=== PATIENT | male | born 1970 | race American Indian/Alaskan Native ===

== ENCOUNTER 2017-06-09 08:38 | Emergency (ER) | payer MEDICARE, BC ==
[2017-06-09 08:41] VITALS: BMI 34.5
[2017-06-09 08:43] VITALS: BP 192/104; PULSE 109; RESP 20; TEMP 97.9; O2SAT 98
--- NOTE | 2017-06-09 10:50 | ED PDOC ---
HPI: Abdomen Time Seen by Provider: 06/09/17 09:20 Chief Complaint (Nursing): Abdominal Pain History Per: Patient History/Exam Limitations: no limitations Onset/Duration Of Symptoms: Gradual (chronic pain) Severity: Mild Location Of Pain/Discomfort: Diffuse Quality Of Discomfort: Cramping Associated Symptoms: Nausea, Vomiting. denies: Fever, Chills, Diarrhea, Constipation, Urinary Symptoms Exacerbating Factors: None Alleviating Factors: None Additional History Per: Patient Additional Complaint(s): 46 y/o M known well by me over several years at multiple hospitalizes including [facility], with chronic complaints on abd pain specifically requesting iv dilaudid this pt has a long history of chronic pain. with a recent rx from [facility] with po dilaudid pt just eloped today from [place] as pt did not get iv dilaudid and benadryl. Past Medical History Reviewed: Historical Data, Nursing Documentation, Vital Signs Vital Signs: Last Vital Signs Temp 97.9 F 06/09/17 08:41 Pulse 109 H 06/09/17 08:41 Resp 20 06/09/17 08:41 BP 192/104 H 06/09/17 08:41 Pulse Ox 98 06/09/17 08:41 - Medical History PMH: Diabetes, Gastritis, HTN, Chronic Kidney Disease Denies: Depression - Surgical History Surgical History: Cholecystectomy - Family History Family History: States: Unknown Family Hx - Immunization History Hx Tetanus Toxoid Vaccination: No Hx Influenza Vaccination: Yes Hx Pneumococcal Vaccination: Yes - Home Medications Home Medications: Ambulatory Orders Medication Instructions Recorded HYDROmorphone [Dilaudid] 4 mg PO Q6H PRN 08/09/13 Insulin Glulisine [Apidra] 0 unit SQ TID 06/07/17 Lisinopril [Zestril] 5 mg PO DAILY 06/07/17 Metoclopramide [Reglan] 10 mg PO TID 06/07/17 Ondansetron [Zofran Odt] 4 mg PO PRN PRN 06/07/17 Pantoprazole Sodium [Protonix] 40 mg PO DAILY 06/07/17 amLODIPine [Norvasc] 10 mg PO DAILY 06/07/17 cloNIDine [clonidine HCl] 0.2 mg PO TID 06/07/17 Ciprofloxacin HCl [Cipro] 250 mg PO BID #14 tablet 06/08/17 Metronidazole [Flagyl] 500 mg PO BID #14 tablet 06/08/17 - Allergies Allergies/Adverse Reactions: Allergies Allergy/AdvReac Type Severity Reaction Status Date / Time ketamine AdvReac Severe DIZZINESS Verified 06/09/17 07:13 Review of Systems ROS Statement: Except As Marked, All Systems Reviewed And Found Negative Constitutional: Negative for: Fever, Chills Cardiovascular: Negative for: Chest Pain, Palpitations Respiratory: Negative for: Cough, Shortness of Breath Gastrointestinal: Positive for: Nausea, Vomiting. Negative for: Abdominal Pain , Diarrhea Neurological: Negative for: Weakness, Numbness Physical Exam - Reviewed Nursing Documentation Reviewed: Yes Vital Signs Reviewed: Yes - Physical Exam Appears: Positive for: Uncomfortable Head Exam: Positive for: ATRAUMATIC, NORMAL INSPECTION, NORMOCEPHALIC Eye Exam: Positive for: Normal appearance Cardiovascular/Chest: Positive for: Regular Rate, Rhythm Respiratory: Positive for: Normal Breath Sounds Gastrointestinal/Abdominal: Positive for: Normal Exam, Bowel Sounds, Soft. Negative for: Tenderness Extremity: Positive for: Other (picc line sight at r arm c/d/i) Neurologic/Psych: Positive for: Alert, cloud operations engineer II-XII. Negative for: Motor/Sensory Deficits - ECG O2 Sat by Pulse Oximetry: 98 Pulse Ox Interpretation: Normal - Progress ED Course And Treament: 46yo male, hx of ESRD, states he is due for HD later today. Presents with abd. pain. States it is similar to previous. Pt states he needs pain medications for his abd pain and benadryl for the itching. Pt repeatedly asking for dilaudid IV since PO is no longer helping Had another long dw with patient about my concerns for opiate dependence I offered alternative therapies and non narcotic pain medication my concern was also that pt reported that he was driving and I did not want to give his benadryl which may make him drowsy labs noted whiche were nml. pt left ama and refused to sign paperwork, pt left ambulatory with a steady gait. Disposition - Clinical Impression Clinical Impression: Abdominal pain - Disposition Disposition: Against Medical Advice Disposition Time: 09:00 Condition: STABLE Forms: [employer] (Macedonian)
== END 2017-06-09 09:30 | disposition left against medical advice (07) ==
LOC: H.ER 08:38
DX: R10.9 Unspecified abdominal pain (principal); I12.0 Hypertensive chronic kidney disease with stage 5 chronic kidney disease or end stage renal disease; N18.6 End stage renal disease; E11.9 Type 2 diabetes mellitus without complications

== ENCOUNTER 2017-06-15 02:02 | Emergency (ER) | payer MEDICARE, BC ==
[2017-06-15 02:02] VITALS: BMI 34.5
[2017-06-15 02:18] VITALS: BP 177/106; PULSE 103; RESP 18; TEMP 97.5; O2SAT 95
--- NOTE | 2017-06-15 02:52 | ED PDOC ---
HPI: Abdomen Time Seen by Provider: 06/15/17 02:16 Chief Complaint (Nursing): Abdominal Pain History Per: Patient History/Exam Limitations: no limitations Onset/Duration Of Symptoms: Days ("years") Outside of [place] travel?: No Current Symptoms Are (Timing): Still Present Location Of Pain/Discomfort: Diffuse Quality Of Discomfort: "Pain" Associated Symptoms: denies: Fever, Chills, Nausea, Vomiting, Diarrhea, Loss Of Appetite, Back Pain, Chest Pain, Constipation, Urinary Symptoms Additional History Per: Patient Additional Complaint(s): 46 y/o male who is well known to this department and provider, complaining of chronic abdominal pain for "years." He requests "one shot" of Dilaudid and Benadryl. No other complaints at this time. Past Medical History Vital Signs: Last Vital Signs Temp 97.5 F L 06/15/17 02:16 Pulse 103 H 06/15/17 02:16 Resp 18 06/15/17 02:16 BP 177/106 H 06/15/17 02:16 Pulse Ox 95 06/15/17 02:53 - Medical History PMH: Diabetes, Gastritis, HTN, Chronic Kidney Disease Denies: Depression - Surgical History Surgical History: Cholecystectomy - Family History Family History: States: Unknown Family Hx - Social History Current smoker - smoking cessation education provided: No - Immunization History Hx Tetanus Toxoid Vaccination: No Hx Influenza Vaccination: Yes Hx Pneumococcal Vaccination: Yes - Home Medications Home Medications: Ambulatory Orders Medication Instructions Recorded HYDROmorphone [Dilaudid] 4 mg PO Q6H PRN 08/09/13 Insulin Glulisine [Apidra] 0 unit SQ TID 06/07/17 Lisinopril [Zestril] 5 mg PO DAILY 06/07/17 Metoclopramide [Reglan] 10 mg PO TID 06/07/17 Ondansetron [Zofran Odt] 4 mg PO PRN PRN 06/07/17 Pantoprazole Sodium [Protonix] 40 mg PO DAILY 06/07/17 amLODIPine [Norvasc] 10 mg PO DAILY 06/07/17 cloNIDine [clonidine HCl] 0.2 mg PO TID 06/07/17 Ciprofloxacin HCl [Cipro] 250 mg PO BID #14 tablet 06/08/17 Metronidazole [Flagyl] 500 mg PO BID #14 tablet 06/08/17 - Allergies Allergies/Adverse Reactions: Allergies Allergy/AdvReac Type Severity Reaction Status Date / Time ketamine AdvReac Severe DIZZINESS Verified 06/11/17 09:35 Review of Systems ROS Statement: Except As Marked, All Systems Reviewed And Found Negative Gastrointestinal: Positive for: Abdominal Pain Physical Exam - Reviewed Nursing Documentation Reviewed: Yes Vital Signs Reviewed: Yes - Physical Exam Appears: Positive for: Well, Non-toxic, No Acute Distress Head Exam: Positive for: ATRAUMATIC, NORMAL INSPECTION, NORMOCEPHALIC Skin: Positive for: Normal Color, Warm, DRY Eye Exam: Positive for: EOMI, Normal appearance, PERRL ENT: Positive for: Normal ENT Inspection Neck: Positive for: Normal, Painless ROM Cardiovascular/Chest: Positive for: Regular Rate, Rhythm Respiratory: Positive for: CNT, Normal Breath Sounds Gastrointestinal/Abdominal: Positive for: Normal Exam, Bowel Sounds, Soft Back: Positive for: Normal Inspection Extremity: Positive for: Normal ROM Neurologic/Psych: Positive for: Alert, Oriented - ECG O2 Sat by Pulse Oximetry: 95 (RA) Pulse Ox Interpretation: Normal Medical Decision Making Medical Decision Making: Impression: 46 y/o male with chronic abdominal pain Prior to work up initiation, the patient left the department. Scribe Attestation Documented by Kim Reyes acting as a scribe for Dr. David Michel. Provider Attestation: All medical record entries made by the Scribe were at my direction and personally dictated by me. I have reviewed the chart and agree that the record accurately reflects my personal performance of the history, physical exam, medical decision making, and the department course for this patient. I have also personally directed, reviewed, and agree with the discharge instructions and disposition. Disposition - Clinical Impression Clinical Impression: Abdominal pain - Patient ED Disposition Is Patient to be Admitted: No - Disposition Disposition: Eloped Disposition Time: 02:53 Condition: STABLE Forms: [email or web address] (Slovak)
== END 2017-06-15 02:40 | disposition left against medical advice (07) ==
LOC: H.ER 02:02
DX: R10.9 Unspecified abdominal pain (principal); E11.22 Type 2 diabetes mellitus with diabetic chronic kidney disease; I12.9 Hypertensive chronic kidney disease with stage 1 through stage 4 chronic kidney disease, or unspecified chronic kidney disease; G89.29 Other chronic pain